=== PATIENT | female | born 1935 | race Caucasian/White ===

== ENCOUNTER → 2016-11-04 | Outpatient (CLI) | payer OTHER ==
--- NOTE | 2016-11-04 13:57 | DX ---
Chest, Two Views at 1207 hours History: Wheezing, COPD, R06.2. Comparison: None. Findings: Cardiac silhouette is within normal range. Large hiatal hernia. Atherosclerotic aorta. Line ar scarring identified in bilateral lower lobes with increased interstitial markings peripherally in both lungs similar to CT from November 2011. No definite pneumonia, congestive heart failure, pleural effusion, or pneumothorax. Impression: 1. Large hiatal hernia. 2. Suspect interstitial pulmonary fibrosis. 3. Recommend high resolution CT chest imaging.
== END ==
LOC: BMCIMAGING 12:07
PROVIDERS: ATTEND Nurse Practitioner Adult Health
DX: R06.2 Wheezing (principal); K44.9 Diaphragmatic hernia without obstruction or gangrene; R91.8 Other nonspecific abnormal finding of lung field